=== PATIENT | male | born 1965 | race Caucasian/White ===

== ENCOUNTER 2020-09-05 17:43 | Emergency (ER) | payer OTHER ==
[2020-09-05 18:44] LABS: HEMOGLOBIN 16.2 gm/dl (14.0-17.5); RED BLOOD COUNT 5.07 M/UL (4.20-5.50); WHITE BLOOD COUNT 13.5 K/UL (4.5-11.0)
[2020-09-05 18:58] LABS: BUN/CREATININE RATIO 12 (0-10)
[2020-09-05] MEDS ORDERED: IBUPROFEN800 MG PO (19:31)
[2020-09-05] MEDS ORDERED: CLEOCIN HCL300 MG PO (19:31)
== END 2020-09-05 19:50 | disposition home or self-care (01) ==
LOC: ER1 17:43
PROVIDERS: Preventive Medicine Occupational Medicine
DX: K12.2 Cellulitis and abscess of mouth (principal)
CPT/HCPCS: 70486; 70490; 80048; 85025; 96374; 96375; 99284; J0696; J1885; J7030